=== PATIENT | male | born 1955 | race Caucasian/White ===

== ENCOUNTER 2018-01-28 10:28 | Day surgery (SDC) | payer OTHER ==
[~2018-01-28] VITALS: Ht 182.9 cm; Wt 102.5 kg
[2018-01-28] MEDS ORDERED: TAMS0.4C96 PO (11:55)
[2018-01-28] MEDS ORDERED: MONT10TA25 PO (11:55)
[2018-01-28] MEDS ORDERED: EZET1TAB61 PO (11:55)
[2018-01-28] MEDS ORDERED: SERT100T PO (11:55)
[2018-01-28] MEDS ORDERED: SITA100T11 PO (11:55)
[2018-01-28] MEDS ORDERED: EMPA10TA PO (11:55)
[2018-01-28] MEDS ORDERED: FENO160 PO (11:55)
[2018-01-28] MEDS ORDERED: ATEN-41 PO (11:55)
[2018-01-28] MEDS ORDERED: LIP80 PO (11:55)
[2018-01-28] MEDS ORDERED: GLU500 PO (11:55)
[2018-01-28] MEDS ORDERED: OMEP20CA10 PO (11:55)
[2018-01-28] MEDS ORDERED: POLYMYXIN 500,000/BACIT.10,000 UNITS in NS IRR 1 L IR ONE (12:22)
[2018-01-28] MEDS ORDERED: SEVOFLURANE 15 MIN GAS INH ONE (12:50)
[2018-01-28] MEDS ORDERED: fentaNYL CITRATE 250 MCG/5 ML AMP IV ONE (12:50)
[2018-01-28] MEDS ORDERED: MIDAZOLAM HCL 5 MG/5 ML VIAL IVP ONE (12:50)
[2018-01-28] MEDS ORDERED: ONDANSETRON HCL 4 MG/2 ML VIAL IVP ONE (12:50)
[2018-01-28] MEDS ORDERED: CEFAZOLIN 2 GM IVPB PREMIX 50 ML IV ONE (12:50)
[2018-01-28] MEDS ORDERED: LR 1,000 ML IV.SOLN IV ONE (12:50)
[2018-01-28] MEDS ORDERED: PROPOFOL 200MG/ 20ML VIAL (DIPRIVAN) IV ONE (12:50)
[2018-01-28] MEDS ORDERED: SUCCINYLCHOLINE CHLORIDE 20 MG/ML(QUELICIN) IVP ONE (12:50)
[2018-01-28] MEDS ORDERED: THROMBIN (BOVINE) 5000 UNITS/ VIAL TP ONE (14:03)
[2018-01-28] MEDS ORDERED: BUPIVACAINE /EPINEPHRINE/PF 0.5% 30 ML VIAL INJ ONE (14:03)
[2018-01-28] MEDS ORDERED: LR 1,000 ML IV SCH (14:26)
[2018-01-28] MEDS ORDERED: HYDROmorphone 2 MG/ML VIAL IVP PRN ×2 (14:30→17:00)
[2018-01-28] MEDS ORDERED: METOCLOPRAMIDE HCL 10 MG/2 ML VIAL IVP PRN (14:30)
[2018-01-28] MEDS ORDERED: HYDROmorphone 1 MG INJ. 1 MG/ML AMPUL IVP PRN ×4 (14:30→17:00)
[2018-01-28] MEDS ORDERED: BISACODYL 10 MG/SUPPOSITORY RC PRN (14:45)
[2018-01-28] MEDS ORDERED: METHOCARBAMOL 500 MG TABLET PO PRN (14:45)
[2018-01-28] MEDS ORDERED: DIPHENHYDRAMINE HCL 50 MG CAPSULE PO PRN (14:45)
[2018-01-28] MEDS ORDERED: HYDROcodone/ACETAMIN 10-325 MG TAB PO PRN (14:45)
[2018-01-28] MEDS ORDERED: MILK OF MAGNESIA 30 ML UDC PO PRN (14:45)
[2018-01-28] MEDS ORDERED: ZOLPIDEM TARTRATE 5 MG TABLET PO PRN (14:45)
[2018-01-28] MEDS ORDERED: HYDROmorphone 1 MG INJ. 1 MG/ML AMPUL ONE (15:03)
[2018-01-28] MEDS ORDERED: HYDROmorphone 2 MG/ML VIAL ONE (15:17)
[2018-01-28] MEDS: HYDROcodone/ACETAMIN 10-325 MG TAB PO PRN ×2 (16:57→21:14)
[2018-01-28] MEDS: CEFAZOLIN 2 GM IVPB PREMIX 50 ML IV SCH (16:58)
[2018-01-28] MEDS: KCL 20 mEq in D5NS 1000 mL 1,000 ML IV SCH (16:59)
[2018-01-28] MEDS ORDERED: ONDANSETRON HCL 4 MG/2 ML VIAL IVP PRN (17:00)
[2018-01-28 17:04] VITALS: BP_SYST 124
[2018-01-28 20:00] VITALS: BP_SYST 140
[2018-01-28] MEDS: DOCUSATE SODIUM 100 MG CAPSULE PO SCH (21:13)
[2018-01-28 23:53] VITALS: BP_SYST 146
[2018-01-29] MEDS: CEFAZOLIN 2 GM IVPB PREMIX 50 ML IV SCH ×2 (00:08→08:21)
[2018-01-29] MEDS: KCL 20 mEq in D5NS 1000 mL 1,000 ML IV SCH (03:01)
[2018-01-29 08:00] VITALS: BP_SYST 132
[2018-01-29] MEDS: DOCUSATE SODIUM 100 MG CAPSULE PO SCH (08:21)
[2018-01-29] MEDS: HYDROcodone/ACETAMIN 10-325 MG TAB PO PRN (08:22)
[2018-01-29 12:00] VITALS: BP_SYST 131
[2018-01-29 14:00] VITALS: BP_SYST 131
== END 2018-01-29 15:15 | disposition home or self-care (01) ==
LOC: SDS 10:28 → SMU 10:28 → SDS 01-29 15:15
PROVIDERS: ATTEND Neurological Surgery
PROC: 4A10X4G Monitoring of Central Nervous Electrical Activity, Intraoperative, External Approach (ICD-10-PCS; principal; 2018-01-28 12:00)
DX: M50.122 Cervical disc disorder at C5-C6 level with radiculopathy (principal); M50.123 Cervical disc disorder at C6-C7 level with radiculopathy; I71.2 Thoracic aortic aneurysm, without rupture; Z68.30 Body mass index [BMI] 30.0-30.9, adult; E66.3 Overweight; E11.40 Type 2 diabetes mellitus with diabetic neuropathy, unspecified; K21.9 Gastro-esophageal reflux disease without esophagitis; F32.9 Major depressive disorder, single episode, unspecified; I42.9 Cardiomyopathy, unspecified; E11.22 Type 2 diabetes mellitus with diabetic chronic kidney disease; Z79.84 Long term (current) use of oral hypoglycemic drugs; I12.9 Hypertensive chronic kidney disease with stage 1 through stage 4 chronic kidney disease, or unspecified chronic kidney disease; N18.3 Chronic kidney disease, stage 3 (moderate); M19.90 Unspecified osteoarthritis, unspecified site; I48.91 Unspecified atrial fibrillation; I21.3 ST elevation (STEMI) myocardial infarction of unspecified site; E78.00 Pure hypercholesterolemia, unspecified; G47.30 Sleep apnea, unspecified; Z95.5 Presence of coronary angioplasty implant and graft; Z95.0 Presence of cardiac pacemaker; Z98.890 Other specified postprocedural states; M81.0 Age-related osteoporosis without current pathological fracture; Z79.82 Long term (current) use of aspirin; I49.9 Cardiac arrhythmia, unspecified; C81.90 Hodgkin lymphoma, unspecified, unspecified site
CPT/HCPCS: 22856; 22858; 76001; 87081; 95860; 95940; C1713; J0330; J0690; J1170 ×2; J2250; J2405; J2704; J3010; J3490; J7120